=== PATIENT | female | born 1960 | race African-American/Black ===

== ENCOUNTER 2017-07-09 22:31 | Observation (INO) | payer OTHER ==
[~2017-07-09] VITALS: Ht 167.6 cm; Wt 109.0 kg
[~2017-07-09 22:31] MED LIST: ATENOLOL50 MG OR; ATENOLOL50 MG PO; HYDROCHLOROT25 MG PO; HYDROCHLOROTH12.5 MG OR; LISINOP/HCTZ1 TA1 OR; LISINOPRIL20 MG OR; LISINOPRIL20 MG PO; LORTAB5 PO; MELOXICAM7.5 MG PO; NAPROSYN500 MG OR; NAPROSYN500 MG PO; TYLENOL # 31 TA1 PO; ULTRAM50 M1 OR; ULTRAM50 M1 PO; ZITHROMAX250 MG PO
--- NOTE | 2017-07-09 22:32 | NUR ---
PATIENT IMMEDIATELY TO TREATMENT AREA VIA WHEELCHAIR. UNDRESSED INTO A GOWN. PLACED ON MONITOR. EKG COMPLETED AT BEDSIDE. AWAITING MD LAYNE.
[2017-07-09 23:19] LABS: IMMATURE GRANULOCYTES 0.5 % (0.0-1.0); MEAN CELL VOLUME 96.3 fL CALC (80.0-100.0); MEAN CORPUSCULAR HGB 32.1 pG CALC (26.0-32.0); MEAN CORPUSCULAR HGB CONC 33.3 g/L CALC (32.0-36.0); NEUT# 4.47 thou/uL (2.00-7.15); RED BLOOD COUNT 4.36 mill/uL (4.20-5.60); RED CELL DISTRI WIDTH 13.3 % (11.5-15.5)
[2017-07-09 23:31] LABS: ALBUMIN 3.9 g/dL (3.2-5.0); ANION GAP 16 (6-22 (CALC)); BILIRUBIN, TOTAL 0.3 mg/dL (0.0-1.4); BUN 19 mg/dL (7-17); BUN/CREATININE RATIO 26 (12-20 (CALC)); CARBON DIOXIDE 23 mmol/l (22-30); CHLORIDE 111 mmol/l (95-108); CREATININE 0.7 mg/dL (0.5-1.0); GFR > 60 ML/MIN (>=60 (CALC)); GFR FOR AFR.AMER. > 60 ML/MIN (>=60 (CALC)); LIPASE 95 u/l (23-300); POTASSIUM 3.9 mmol/l (3.5-5.1); SGOT/AST 19 u/l (14-36); SGPT/ALT 30 u/l (9-52); SODIUM 146 mmol/l (137-146); TOTAL PROTEIN 7.8 g/dL (6.3-8.2)
[2017-07-09 23:33] LABS: ALKALINE PHOSPHATASE 183 u/l (38-126)
--- NOTE | 2017-07-09 23:35 | NUR ---
PT CURRENTLY RATED PAIN 7/10.
[2017-07-09 23:43] LABS: MYOGLOBIN 24 ng/mL (0 - 62)
--- NOTE | 2017-07-09 23:52 | NUR ---
DR WELLS AT BEDSIDE TO DISCUSS FINDINGS.
--- NOTE | 2017-07-10 00:13 | NUR ---
REPORT CALLED TO [facility].
--- NOTE | 2017-07-10 00:20 | NUR ---
PT TO ROOM 261 VIA STRETCHED ACCOMPANIED BY ER STAFF. PT AMBULATED TO BED WITHOUT ASSISTANCE. PT IS ALERT AND ORIENTED X3. PERRLA. RESP ARE EVEN AND UNLABORED. NO DISTRESS NOTED. LUNGS ARE CLEAR. TELE IN PLACE. HR REGULAR. NO EDEMA NOTED. PULSES PALPABLE THROUGHOUT. BS ACTIVE. #20 LAC SALINE LOCKED. NO REDNESS OR EDEMA NOTED. CALL LIGHT IN REACH. WILL CONTINUE TO MONITOR
--- NOTE | 2017-07-10 00:20 | NUR ---
PT TO 261 WITH RN ON TELE. PT RELATED HER CHEST PAIN WAS FEELING BETTER.
--- NOTE | 2017-07-10 04:10 | NUR ---
PT RESTING IN BED. RESP ARE EVEN AND UNLABORED. NO DISTRESS NOTED. CALL LIGHT IN REACH. WILL CONTINUE TO MONITOR
--- NOTE | 2017-07-10 04:15 | NUR ---
MEDICATED PT WITH HYDRALAZINE 10MG IV FOR BP 183/82.
[2017-07-10 04:27] VITALS: BP 183/82
--- NOTE | 2017-07-10 05:00 | NUR ---
BP 191/80. WILL RECHECK WITH A MANUAL
--- NOTE | 2017-07-10 05:35 | NUR ---
MANUAL BP 170/90.
--- NOTE | 2017-07-10 07:16 | NUR ---
SHIFT CHANGE FROM [facility], PT AWAKE ALERT AND ORIENTED, DENIES PAIN AT THIS TIME, TELE MONITOR IN PLACE CALL NAIDU IN REACH.
[2017-07-10 07:18] LABS: CHOLESTEROL HDL RATIO 3.3 (<4.4 (CALC))
[2017-07-10 07:49] VITALS: BP 173/73
[2017-07-10 07:57] LABS: TSH, 3RD GENERATION 1.87 uIU/mL (0.47 - 4.68)
[2017-07-10 10:55] VITALS: BP 143/61
--- NOTE | 2017-07-10 13:16 | NUR ---
SITTING UP IN RECLINER, ATE MEAL, ALL NEEDS ADDRESSED, CALL NAIDU IN REACH.
--- NOTE | 2017-07-10 15:45 | NUR ---
WENT DOWN FOR CT @ 1400 AND RETURNED TO ROOM, RESTING IN BED AT THIS TIME, NO C/O DISCOMFORT, CALL NAIDU IN REACH.
[2017-07-10 16:18] VITALS: BP 190/68
[2017-07-10 17:45] VITALS: BP 134/64
[2017-07-10 18:51] LABS: URINE BILIRUBIN - DIPSTICK NEGATIVE (NEGATIVE); URINE BLOOD DIPSTICK NEGATIVE (NEGATIVE); URINE COLOR YELLOW; URINE GLUCOSE - DIPSTICK NEGATIVE (NEGATIVE); URINE KETONE NEGATIVE (NEGATIVE); URINE LEUK ESTERASE NEGATIVE (NEGATIVE); URINE NITRITE - DIPSTICK NEGATIVE (Negative); URINE PROTEIN - DIPSTICK NEGATIVE (NEG-TRACE); URINE SPECIFIC GRAVITY 1.015; URINE UROBILINOGEN - DIPSTICK 0.2 E.U./dL (0.2)
[2017-07-10 18:53] LABS: URINE CLARITY CLEAR
[2017-07-10 19:00] VITALS: BP 148/77
--- NOTE | 2017-07-10 19:32 | NUR ---
BEDSIDE REPORT RECEIVED FROM RADHA BARCENAS. PT RESTING IN BED ON RIGHT SIDE. DENIES PAIN/DISCOMFORT CURRENTLY. RESPIRATIONS EVEN AND UNLABORED ON ROOM AIR. PLAN OF CARE DISCUSSED. PT ENCOURAGED TO VERBALIZE CONCERNS. STATES UNDERSTANDING. SAFETY MEASURES IN PLACE. CALL LIGHT WITHIN REACH.
--- NOTE | 2017-07-11 00:04 | NUR ---
PT ASLEEP AT THIS TIME WITH NO SIGNS OF DISTRESS NOTED. RESPIRATIONS EVEN AND UNLABORED ON ROOM AIR. WILDER'S COCKTAIL GIVEN AT HS FOR HEART BURN WITH GOOD EFFECT. PT IS INDEPENDENT IN ROOM TO THE BATHROOM; USES CALL LIGHT PRN FOR ASSISTANCE. HAS HAD NO REQUESTS OR COMPLAINTS. IV SITE APPEARS HEALTHY AND FLUSHES. SAFETY MEASURES IN PLACE. CALL LIGHT WITHIN REACH.
[2017-07-11 00:12] VITALS: BP 149/85
[2017-07-11 01:59] VITALS: BP 116/72
[2017-07-11 03:56] VITALS: BP 147/68
--- NOTE | 2017-07-11 05:06 | NUR ---
PT SITTING UP IN RECLINER AT THIS TIME. CURRENTLY C/O MILD PAIN TO TOP OF LEFT FOOT OF UNKNOWN CAUSE. REPSIRATIONS EVEN AND UNLABORED ON ROOM AIR. BLOOD PRESSURES REMAIN STABLE. NO ACUTE CHANGES IN CONDITION THROUGHOUT THE NIGHT. SAFETY MEASURES IN PLACE. CALL LIGHT WITHIN REACH.
[2017-07-11 05:27] LABS: HEMATOCRIT 42.9 % (37.0-47.0); HEMOGLOBIN 13.8 g/dl (12.0-16.0); MEAN CELL VOLUME 96.8 fL CALC (80.0-100.0); MEAN CORPUSCULAR HGB 31.2 pG CALC (26.0-32.0); MEAN CORPUSCULAR HGB CONC 32.2 g/L CALC (32.0-36.0); RED BLOOD COUNT 4.43 mill/uL (4.20-5.60); RED CELL DISTRI WIDTH 13.4 % (11.5-15.5)
[2017-07-11 06:01] LABS: ANION GAP 16 (6-22 (CALC)); BUN 15 mg/dL (7-17); BUN/CREATININE RATIO 24 (12-20 (CALC)); CARBON DIOXIDE 22 mmol/l (22-30); CHLORIDE 109 mmol/l (95-108); CREATININE 0.6 mg/dL (0.5-1.0); GFR > 60 ML/MIN (>=60 (CALC)); GFR FOR AFR.AMER. > 60 ML/MIN (>=60 (CALC)); MAGNESIUM 2.1 mg/dL (1.6-2.3); POTASSIUM 4.4 mmol/l (3.5-5.1); SODIUM 143 mmol/l (137-146)
--- NOTE | 2017-07-11 07:30 | NUR ---
SHIFT CHANGE REPORT FROM [facility] NATH AWAKE ALERT AND ORIENTED SITTING UP AT BEDSIDE, STATED SHE SLEPT WELL, NO C/O DISCOMFORT, TELE MONITOR IN PLACE, CALL NAIDU IN REACH.
[2017-07-11 08:29] VITALS: BP 114/61
[2017-07-11 10:29] VITALS: BP 126/52
--- NOTE | 2017-07-11 12:11 | NUR ---
INFORMED OF NEW ORDERS, PT STARTED TO CRY REPORTING SHE THOUGHT SHE WOULD BE GOING HOME TODAY. I ADVISED PT A DOCTOR WILL BE COMING SOMETIME TODAY AND WOULD EXPLAIN ALL THESE NOW ORDERS TO HER, SHE FURTHER STATED HER FATHER WAS IN AND INSTITUTION AND SHE NEEDED TO VISIT HIM SHE IS HIS ONLY SUPPORT. WILL CONTINUE TO MONITOR.
[2017-07-11] MEDS ORDERED: AMLODIPINE BESYL5 MG PO (14:44)
[2017-07-11] MEDS ORDERED: PANTOPRAZOLE SO40 M1 PO (14:45)
[2017-07-11] MEDS ORDERED: IBUPROFEN600 MG PO (14:45)
[2017-07-11 15:16] VITALS: BP 101/72
--- NOTE | 2017-07-11 16:09 | NUR ---
Discharge instructions given. Patient verbalizes understanding of same. Discharged in good condition via Wheelchair to Home with family. All belongings sent with pt.
== END 2017-07-11 16:06 | disposition home or self-care (01) | DRG 206 ==
LOC: ED 22:31 → ED-I 23:20 → ED 07-10 00:02 → MS2 07-10 00:03 → UNDODEPER 07-10 00:20 → MS2 07-11 16:06
PROVIDERS: Emergency Medicine; Hospitalist; Nurse Practitioner Family; ADMIT Internal Medicine; ATTEND Internal Medicine
DX: M94.0 Chondrocostal junction syndrome [Tietze] (principal); E83.52 Hypercalcemia; F17.210 Nicotine dependence, cigarettes, uncomplicated; I10 Essential (primary) hypertension; I16.0 Hypertensive urgency; M19.90 Unspecified osteoarthritis, unspecified site; R63.4 Abnormal weight loss; M62.81 Muscle weakness (generalized); Z68.38 Body mass index [BMI] 38.0-38.9, adult; E78.5 Hyperlipidemia, unspecified; E66.9 Obesity, unspecified; R94.6 Abnormal results of thyroid function studies; R74.8 Abnormal levels of other serum enzymes
CPT/HCPCS: G0378

== ENCOUNTER 2018-07-30 18:58 | Emergency (ER) | payer SELFPAY ==
[~2018-07-30] VITALS: Ht 167.6 cm; Wt 121.0 kg
[~2018-07-30 18:58] MED LIST changes: +AMLODIPINE BESYL5 MG PO; +IBUPROFEN600 MG PO; +PANTOPRAZOLE SO40 M1 PO
[2018-07-30 19:39] VITALS: BP 152/70
== END 2018-07-30 20:23 | disposition left against medical advice (07) | DRG 305 ==
LOC: ED 18:58
DX: I10 Essential (primary) hypertension (principal); R51 Headache; F17.200 Nicotine dependence, unspecified, uncomplicated

== ENCOUNTER 2020-10-22 15:45 | Emergency (ER) | payer SELFPAY ==
[~2020-10-22] VITALS: Ht 167.6 cm; Wt 125.4 kg
[2020-10-22] MEDS ORDERED: NORVASC5 M1 PO (16:05)
[2020-10-22] MEDS ORDERED: METHOTREXATE2.5 MG PO (16:08)
[2020-10-22 16:28] LABS: HEMATOCRIT 43.4 % (37.0-47.0); HEMOGLOBIN 13.8 g/dl (12.0-16.0); IMMATURE GRANULOCYTES 0.4 % (0.0-5.0); MEAN CELL VOLUME 97.1 fL CALC (80.0-100.0); MEAN CORPUSCULAR HGB 30.9 pG CALC (26.0-32.0); MEAN CORPUSCULAR HGB CONC 31.8 g/dL CAL (32.0-36.0); NEUT# 6.74 thou/uL (2.00-7.15); RED BLOOD COUNT 4.47 mill/uL (4.20-5.60); RED CELL DISTRI WIDTH 13.6 % (11.5-15.5)
[2020-10-22 16:48] LABS: ALKALINE PHOSPHATASE 118 u/l (38-126); ANION GAP 11 (6-22 (CALC)); BILIRUBIN, TOTAL 0.2 mg/dL (0.0-1.4); BUN 14 mg/dL (8-23); BUN/CREATININE RATIO 20 (12-20 (CALC)); CARBON DIOXIDE 25 mmol/l (22-30); CHLORIDE 109 mmol/l (95-108); CREATININE 0.7 mg/dL (0.5-1.0); GFR > 60 ML/MIN (>=60 (CALC)); GFR FOR AFR.AMER. > 60 ML/MIN (>=60 (CALC)); POTASSIUM 3.8 mmol/l (3.5-5.1); SGOT/AST 27 u/l (9-36); SODIUM 141 mmol/l (137-146); TOTAL PROTEIN 8.5 g/dL (6.3-8.2)
[2020-10-22 17:00] LABS: MYOGLOBIN 19 ng/mL (0 - 62)
[2020-10-22] MEDS ORDERED: CYCLOBENZAPRINE10 MG PO ×3 (17:08→17:12)
[2020-10-22] MEDS ORDERED: LORTAB 1010 MG PO ×3 (17:08→17:12)
[2020-10-22 17:21] VITALS: BP 175/75
== END 2020-10-22 17:30 | disposition home or self-care (01) | DRG 554 ==
LOC: ED 15:45
PROVIDERS: Emergency Medicine
DX: M19.011 Primary osteoarthritis, right shoulder (principal); I10 Essential (primary) hypertension; F17.200 Nicotine dependence, unspecified, uncomplicated

== ENCOUNTER 2022-03-24 08:41 | Emergency (ER) | payer BC ==
[~2022-03-24] VITALS: Ht 167.6 cm; Wt 131.0 kg
[~2022-03-24 08:41] MED LIST changes: +CYCLOBENZAPRINE10 MG PO; +LORTAB 1010 MG PO; +METHOTREXATE2.5 MG PO; +NORVASC5 M1 PO
[2022-03-24 09:25] VITALS: BP 164/87
[2022-03-24 09:30] VITALS: BP 143/78
[2022-03-24 09:45] VITALS: BP 150/75
[2022-03-24 10:00] VITALS: BP 150/90
[2022-03-24 10:17] VITALS: BP 111/89
[2022-03-24] MEDS ORDERED: AMOXICILLIN500 M2 PO ×2 (10:28→12:00)
[2022-03-24 10:30] VITALS: BP 111/89
== END 2022-03-24 10:38 | disposition home or self-care (01) | DRG 153 ==
LOC: ED 08:41
DX: J02.9 Acute pharyngitis, unspecified (principal); Z20.822 Contact with and (suspected) exposure to COVID-19; I10 Essential (primary) hypertension

== ENCOUNTER 2022-06-30 14:57 | Emergency (ER) | payer MEDICAID ==
[~2022-06-30] VITALS: Ht 167.6 cm; Wt 122.5 kg
[~2022-06-30 14:57] MED LIST changes: +AMOXICILLIN500 M2 PO
[2022-06-30] MEDS ORDERED: AMOX/K CLAV875 M1 PO ×3 (15:52→16:45)
[2022-06-30 16:28] VITALS: BP 150/74
== END 2022-06-30 16:50 | disposition home or self-care (01) ==
LOC: ED 14:57
DX: H66.92 Otitis media, unspecified, left ear (principal); I10 Essential (primary) hypertension

== ENCOUNTER 2022-07-26 11:31 | Emergency (ER) | payer MEDICAID ==
[~2022-07-26] VITALS: Ht 167.6 cm; Wt 92.0 kg
[~2022-07-26 11:31] MED LIST changes: +AMOX/K CLAV875 M1 PO
[2022-07-26 11:44] VITALS: BP 139/94
[2022-07-26] MEDS ORDERED: PREDNISONE10 MG PO (11:53)
[2022-07-26] MEDS ORDERED: NAPROXEN500 MG PO (11:53)
[2022-07-26] MEDS ORDERED: TRAMADOL HYDROC50 M1 PO (11:53)
[2022-07-26 12:01] VITALS: BP 122/56
[2022-07-26 12:10] VITALS: BP 122/56
== END 2022-07-26 12:11 | disposition home or self-care (01) ==
LOC: ED 11:31
DX: M06.9 Rheumatoid arthritis, unspecified (principal); I10 Essential (primary) hypertension

== ENCOUNTER 2022-09-06 11:04 | Emergency (ER) | payer OTHER, MEDICAID ==
[~2022-09-06] VITALS: Ht 167.6 cm; Wt 127.0 kg
[~2022-09-06 11:04] MED LIST changes: +NAPROXEN500 MG PO; +PREDNISONE10 MG PO; +TRAMADOL HYDROC50 M1 PO
[2022-09-06] MEDS ORDERED: PREDNISONE10 MG PO (12:00)
[2022-09-06] MEDS ORDERED: NAPROXEN500 MG PO (12:00)
[2022-09-06 12:27] VITALS: BP 164/78
== END 2022-09-06 12:27 | disposition home or self-care (01) ==
LOC: ED 11:04
DX: M25.542 Pain in joints of left hand (principal); M25.541 Pain in joints of right hand; M25.572 Pain in left ankle and joints of left foot; M25.571 Pain in right ankle and joints of right foot; M06.9 Rheumatoid arthritis, unspecified; I10 Essential (primary) hypertension

== ENCOUNTER 2022-09-27 14:08 | Emergency (ER) | payer OTHER, MEDICAID ==
[~2022-09-27] VITALS: Ht 167.6 cm; Wt 128.0 kg
[2022-09-27] MEDS ORDERED: TRAMADOL HYDROC50 M1 PO ×2 (14:57→15:05)
[2022-09-27 15:30] VITALS: BP 158/68
== END 2022-09-27 15:30 | disposition home or self-care (01) | DRG 547 ==
LOC: ED 14:08
DX: M06.9 Rheumatoid arthritis, unspecified (principal); I10 Essential (primary) hypertension; Z79.52 Long term (current) use of systemic steroids